=== PATIENT | male | born 1940 | race Caucasian/White ===

== ENCOUNTER 2016-10-31 05:06 | Inpatient (IN) | payer MEDICARE, OTHER ==
--- NOTE | ~2016-10-31 | OP ---
Record Of Operation [facility] [address] [place]. [address] NAME: MIKE PAYAN : 42 STATUS : ADM IN [facility]#: [id number] AGE: 76 ADM/REG DATE : 10/31/16 MR#: [id number] REPORT SERV DATE: 10/31/16 DICTATED BY: EVER DOWNEY DATE: 10/31/16 REPORT STATUS : Draft TRANSCRIBED BY: MODL DATE: 10/31/16 DATE OF PROCEDURE: 10/31/2016 PREOPERATIVE DIAGNOSIS: Severe varus osteoarthritis of the right knee. POSTOPERATIVE DIAGNOSIS: Severe varus osteoarthritis of the right knee. PROCEDURE: Right total knee arthroplasty. SURGEON: Ever Downey M.D. PROPERTY CLAIM REP: Dennis Puga. ANESTHESIA: Spinal with MAC. ESTIMATED BLOOD LOSS: 100 mL. COMPLICATIONS: None. DRAINS: ConstaVac x1. TOURNIQUET TIME: Approximately 70 minutes. IMPLANTS: Karl and Karl Attune size 7 posterior stabilized right femoral component, size 7 modular tibial tray with a 7 mm thick posterior stabilized tibial polyethylene insert, the patella was a 41 mm patella. All components were cemented in place with [employer] Simplex bead set bone cement. INDICATIONS FOR SURGERY: Mr. Payan is a 76-year-old male with severe varus osteoarthritis of his right knee. He has had unremitting pain which had been refractory to medical management. He presents requesting the above-mentioned procedure. Risks of the procedure as detailed in the history and physical, and operative consent were discussed prior to proceeding. He fully understood and has requested to proceed. DESCRIPTION OF PROCEDURE: The patient was brought to the operating room and after induction of anesthesia, was positioned in the supine position. All appropriate pressure points were padded. The operative knee was then prepped and draped in the usual sterile fashion. Time out was performed confirming the appropriate surgical side and site. The leg was exsanguinated with an Francisco wrap and the tourniquet inflated to 350 mmHg pressure. A medial parapatellar approach to the knee was performed. The skin and cutaneous tissues were incised sharply in the midline with a #10 blade. Electrocautery was used as needed to maintain hemostasis. The retinaculum was divided and the extensor mechanism exposed. A median parapatellar arthrotomy was carried out. The medial tibia was exposed subperiosteally and the patellofemoral ligaments divided. The patella was then subluxated laterally and the knee carefully flexed. The knee was Record Of Operation [facility] [place] [id number] [facility] [place]. [address] NAME: MIKE PAYAN : 42 STATUS : ADM IN PAT#: [id number] AGE: 76 ADM/REG DATE : 10/31/16 MR#: [id number] REPORT SERV DATE: 10/31/16 DICTATED BY: EVER DOWNEY DATE: 10/31/16 REPORT STATUS : Draft TRANSCRIBED BY: INA DATE: 10/31/16 d brided of all osteophytes, meniscal remnants in the anterior and posterior cruciate ligaments. Attention was then turned to the distal femur. The intramedullary guide was set at 5 degrees of valgus and secured to the distal femur. The distal femoral resection was then carried out. The femur was then sized to the appropriate block as determined intraoperatively and from templating. The AP cutting block was secured in such a way as to create matched distal and posterior femoral resections in the appropriate rotation. The anterior and posterior femoral cuts were made, chamfer cuts were completed and the box was created for the posterior stabilized femoral component. Attention was then turned to the tibia. The extramedullary alignment guide was set a neutral varus/valgus to match the patient's kotlik posterior tibial slope. The tibia was resected, removing 2 to 3 mm, from the most affected side. The tibial fragment was then removed. Attention was then turned to the posterior aspect of the knee and any remaining posterior femoral osteophytes or meniscal remnants were d brided. The patella was then everted and a uniform resection created taking the thickness of the planned patellar component. The cut was checked with a caliper to be sure of the appropriate resection level. The patella was then finally sized and three holes drilled for an oval domed three peg patella. At this point, the varus/valgus alignment of the knee was accessed. The appropriate releases were performed to balance the knee. A trial reduction was performed. The knee came to a full extension. There was 2 to 3 mm of opening to both varus and valgus stress at 30 and 90 degrees of flexion and normal patellar tracking. At this point, all trial components were removed and the final tibial preparation performed. The bony surfaces were copiously irrigated with normal saline and dried and the final components cemented in place. Once the cement had fully cured, the knee was carefully inspected and all extruded cement fragments were removed. A trial reduction was once again performed. Range of motion and stability of the knee were unchanged. The true tibial insert was then impacted in the clean tibial tray. A drain was placed deep through the arthrotomy and the knee was once again irrigated with pulsatile lavage normal saline. The arthrotomy was repaired using interrupted 1-0 Vicryl suture in a [id number]-ewged fashion. The subcutaneous tissues were approximated with interrupted 2-0 Vicryl suture, the skin stapled. A sterile dressing was applied. The tourniquet was deflated and the patient was taken to the Recovery Room in stable condition. POSTOP PLAN: The patient is to be weightbearing as tolerated with physical therapy to be started per total knee arthroplasty protocol. The patient will be on Coumadin and mechanical deep venous thrombosis prophylaxis. GARY/NANCYL Ever Record Of [address] [address] NAME: MIKE PAYAN : 42 STATUS : ADM IN [facility]#: [id number] AGE: 76 ADM/REG DATE : 10/31/16 MR#: [id number] REPORT SERV DATE: 10/31/16 DICTATED BY: EVER DOWNEY DATE: 10/31/16 REPORT STATUS : Draft TRANSCRIBED BY: MODL DATE: 10/31/16 Peng Downey / [id number] CC: Peng Lozano M.D.
[~2016-10-31 05:06] MED LIST: ALEVE220 MG PO; CENTRUM PO; FERROUS SULF325 M1 PO; FISH-EPA1000 MG PO; GLUCCHONDR PO; HALF81 PO; HYTRIN10 MG PO; JANUMET1 TA1 PO; LAMIS15 TOP; LEVEMFLXPN SC; LOP25 PO; MAALOX PO; MYLUD PO; NEUR300 PO; NORCO1 TAB PO; NORV5 PO; PCET PO; PEP20 PO; PYR200 PO; ZOCOR10 PO; ZOFRAN8 PO
[2016-11-01 05:54] LABS: HEMATOCRIT 30.7 % (40.0-51.0); HEMOGLOBIN 10.7 g/dL (13.6-17.8)
[2016-11-01 06:02] LABS: CALCIUM, SERUM 8.3 MG/DL (8.5-10.4); CHLORIDE, SERUM 105 MMOL/L (96-112); CO2 (CARBON DIOXIDE) 28 MMOL/L (24-34); GFR AFRICAN AMERICAN 101 ML/MIN (>=60); GFR NON AFRICAN AMERICAN 87 ML/MIN (>=60); GLUCOSE, SERUM 154 MG/DL (60-99); POTASSIUM, SERUM 4.5 MMOL/L (3.5-5.3); SODIUM, SERUM 139 MMOL/L (135-148)
[2016-11-01 06:03] LABS: BUN (BLOOD UREA NITROGEN) 13 MG/DL (6-23)
[2016-11-01 06:13] LABS: INTERNATIONAL NORMAL RATI 1.2 UNITS (-)
[2016-11-02 05:35] LABS: HEMOGLOBIN 9.5 g/dL (13.6-17.8)
[2016-11-02 05:43] LABS: HEMATOCRIT 27.2 % (40.0-51.0); INTERNATIONAL NORMAL RATI 1.4 UNITS (-); PROTIME (NOT ORD) 17.2 SEC (12.0-14.5)
[2016-11-02] MEDS ORDERED: OXYCOD PO (09:47)
[2016-11-02] MEDS ORDERED: COUMADIN4 MG (09:47)
== END 2016-11-02 12:00 | disposition home or self-care (01) | DRG 470 ==
LOC: SDC/OF 05:06 → PACU 09:13 → 3JRC 11:01
PROVIDERS: Specialist
PROC: 3E0T3CZ (ICD-10-PCS; 2016-10-31)
PROC: 0SRC0J9 Replacement of Right Knee Joint with Synthetic Substitute, Cemented, Open Approach (ICD-10-PCS; principal; 2016-10-31 06:30)
DX: M17.11 Unilateral primary osteoarthritis, right knee (principal); E11.40 Type 2 diabetes mellitus with diabetic neuropathy, unspecified; I10 Essential (primary) hypertension; E78.5 Hyperlipidemia, unspecified; K21.9 Gastro-esophageal reflux disease without esophagitis; Z79.84 Long term (current) use of oral hypoglycemic drugs
CPT/HCPCS: 36415; 71020; 80048; 80053; 81001; 82962; 83036; 85014; 85018; 85025; 85610; 85730; 86850; 86900; 86901; 87641; 88305; 88311; 93005; 97116-GP; 97150-GP; 97161-GP; 97165-GO; A9270-GY; C1776; J0690; J1885; J2250; J2270; J2795; J3010